=== PATIENT | male | born 1955 | race Caucasian/White ===

== ENCOUNTER 2016-09-01 14:54 | Observation (INO) | payer BC ==
[~2016-09-01] VITALS: Ht 172.7 cm; Wt 97.5 kg
[2016-09-01 15:28] LABS: BASO % 0.4 % (0.0-2.0); EOS # 0.2 (0.0-0.7); EOS % 2.3 % (0-4.0); GRAN # 4.6 (1.4-6.5); GRAN % 60.8 % (42.2-75.2); HEMOGLOBIN 15.2 g/dl (13.5-18.0); LYMPH # 2.1 (1.2-3.4); LYMPH % 28.2 % (20.0-51.0); MEAN CELL VOLUME 82 fl (80.0-100.0); MEAN CORPUSCULAR HEMOGLOBIN 27 pg (27.0-31.0); MEAN CORPUSCULAR HGB CONC 33 g/dl (33.0-37.0); MEAN PLATELET VOLUME 10.1 fl (7.4-10.4); MONO # 0.6 (0.1-0.6); PLATELET COUNT 210 K/mm3 (130-400); RED BLOOD COUNT 5.64 M/mm3 (4.20-5.60); REDCELL DISTRIBUTION WIDTH-CV 13.5 % (11.5-14.5); WHITE BLOOD COUNT 7.5 K/mm3 (4.8-10.8)
[2016-09-01 15:29] LABS: PROTHROMBIN TIME 11.1 SECONDS (9.7-12.8)
[2016-09-01 15:32] LABS: PARTIAL THROMBOPLASTIN TIME 33.5 SECONDS (26.0-37.0)
[2016-09-01 15:35] LABS: ALANINE AMINOTRANSFERASE 34 U/L (21-72); ALBUMIN 4.7 gm/dL (3.5-5.0); ALKALINE PHOSPHATASE 71 U/L (50-136); ANION GAP 15 mmol/L (7-16); BILIRUBIN,TOTAL 0.8 mg/dL (0.0-1.0); BLOOD UREA NITROGEN 14 mg/dL (9-20); CALCIUM 9.6 mg/dL (8.4-10.2); CARBON DIOXIDE 25 mmol/L (22-30); CHLORIDE 100 mmol/L (98-107); CREATINE KINASE 96 U/L (55-170); CREATININE, serum 0.75 mg/dL (0.66-1.25); GLUCOSE 163 mg/dL (74-106); POTASSIUM 3.8 mmol/L (3.4-5.0); SODIUM 140 mmol/L (137-145); TOTAL PROTEIN 7.7 gm/dL (6.4-8.2)
[2016-09-01 15:47] LABS: B-TYPE NATRIURETIC PEPTIDE 107 pg/mL (0-125); TROPONIN-I < 0.012 ng/mL (0.000-0.034)
[2016-09-01] MEDS ORDERED: PRINIVIL10 MG PO (16:13)
[2016-09-01] MEDS ORDERED: ZOCOR 40MG40 MG PO (16:13)
[2016-09-01] MEDS ORDERED: GLUCOPHAGE500 MG/TAB PO (16:14)
[2016-09-01] MEDS ORDERED: LEVEMIR SQ (16:15)
[2016-09-01] MEDS ORDERED: ASPIRIN 81M81 MG/TA2 PO (16:17)
[2016-09-01] MEDS ORDERED: TYLENOL PM EXTR1 TA1 PO (16:20)
[2016-09-01 18:06] VITALS: BP 137/64; PULSE 56; TEMP 99
[2016-09-01 19:37] VITALS: BP 135/58; PULSE 68; TEMP 98.8
[2016-09-01] MEDS ORDERED: NOVOLOG 100U100 U/M1 SQ (20:29)
[2016-09-02] VITALS (11 sets, daily range): BP systolic 124–179; BP diastolic 44–81; PULSE 55–104; TEMP 97.9–98.2
[2016-09-02 08:02] LABS: CHOLESTEROL 146 mg/dL (120-200); HDL CHOLESTEROL 39 mg/dL; LDL CHOLESTEROL 75 mg/dL; TRIGLYCERIDE 162 mg/dL
[2016-09-02 08:15] LABS: TROPONIN-I < 0.012 ng/mL (0.000-0.034)
[2016-09-02] MEDS ORDERED: RT ADVAIR 228 DISKUS IH (16:11)
== END 2016-09-02 16:50 | disposition home or self-care (01) ==
LOC: COL.ER 14:54 → MEDICAL 16:28
PROVIDERS: Emergency Medicine; Internal Medicine
DX: R06.00 Dyspnea, unspecified (principal); I10 Essential (primary) hypertension; E11.9 Type 2 diabetes mellitus without complications; Z79.4 Long term (current) use of insulin; Z79.84 Long term (current) use of oral hypoglycemic drugs; E66.9 Obesity, unspecified; E78.9 Disorder of lipoprotein metabolism, unspecified; Z87.891 Personal history of nicotine dependence
CPT/HCPCS: A9502; G0378; J1650; J1815; J2785; J7030

== ENCOUNTER → 2023-09-03 | Outpatient (CLI) | payer OTHER ==
[~2023-09-03] MED LIST: ASPIRIN 81M81 MG/TA2 PO; GLUCOPHAGE500 MG/TAB PO; LEVEMIR SQ; NOVOLOG 100U100 U/M1 SQ; PRINIVIL10 MG PO; RT ADVAIR 228 DISKUS IH; TYLENOL PM EXTR1 TA1 PO; ZOCOR 40MG40 MG PO
== END ==
LOC: COL.RAD 11:59
DX: M47.26 Other spondylosis with radiculopathy, lumbar region (principal); M47.27 Other spondylosis with radiculopathy, lumbosacral region; M51.16 Intervertebral disc disorders with radiculopathy, lumbar region; M51.17 Intervertebral disc disorders with radiculopathy, lumbosacral region; M43.16 Spondylolisthesis, lumbar region